=== PATIENT | female | born 1940 | race Caucasian/White ===

== ENCOUNTER 2017-08-19 08:49 | Outpatient (CLI) | payer MEDICARE ==
[~2017-08-19 08:49] MED LIST: ASPI-1071 PO; CALC-995; DULO-31 PO; OMEG1CAP46; OXYC-580 PO
== END 2017-08-19 23:59 | disposition home or self-care (01) ==
LOC: VAS 08:49
PROVIDERS: ATTEND Surgery
DX: I65.23 Occlusion and stenosis of bilateral carotid arteries (principal)
CPT/HCPCS: 93880

== ENCOUNTER 2023-11-08 11:47 | Emergency (ER) | payer MEDICARE ==
[~2023-11-08] VITALS: Ht 149.9 cm; Wt 57.7 kg
[~2023-11-08 11:47] MED LIST changes: +OXYC-481 PO; -OXYC-580 PO
[2023-11-08 11:53] VITALS: BP 146/113; PULSE 88; RESP 16; TEMP 98; O2SAT 97
== END 2023-11-08 13:14 | disposition home or self-care (01) ==
LOC: ER 11:47
DX: K59.00 Constipation, unspecified (principal); Z79.82 Long term (current) use of aspirin; Z79.899 Other long term (current) drug therapy
CPT/HCPCS: 99282